=== PATIENT | male | born 1975 | race Caucasian/White ===

== ENCOUNTER 2024-05-09 17:49 | Emergency (ER) | payer OTHER, SELFPAY ==
--- NOTE | 2024-05-09 | ECG_ITS ---
Test Reason : CP Blood Pressure : / mmHG Vent. Rate : 075 BPM Atrial Rate : 075 BPM P-R Int : 116 ms QRS Dur : 108 ms QT Int : 384 ms P-R-T Axes : 035 019 036 degrees QTc Int : 428 ms Normal sinus rhythm Normal ECG No previous ECGs available Referred By: Generic ED Physician Electronically Signed By:SADAF VEGA MD
--- NOTE | ~2024-05-09 | XR_ITS ---
CLINICAL HISTORY: chest pain Two views of the chest. COMPARISON: None FINDINGS: Low lung volumes. Normal heart size. No consolidation. Crowding of the bronchovascular markings, likely secondary to low lung volumes. No pleural effusion pneumothorax. No acute fracture or suspicious bone lesion. IMPRESSION: 1. Low lung volumes. No consolidation. This document has been electronically signed by: Jose Cosme MD on 05/09/2024 19:11:56
[2024-05-09 18:19] VITALS: BP 139/119; PULSE 71; RESP 16; TEMP 36.6; O2SAT 96; BMI 40.6
--- NOTE | 2024-05-09 18:19 | ED.GENADULT ---
HPI - General Adult General Chief complaint: Chest Pain Stated complaint: Chest pain Related Data Allergies Allergy/AdvReac Type Severity Reaction Status Date / Time amoxicillin [AMOXICILLIN] Allergy Intermediate Hives Verified 05/09/24 18:21 tramadol [TRAMADOL] Allergy Intermediate Hives Verified 05/09/24 18:21 [facility] Social History Social History Advance Directives: No Advance Directives Information Provided: No Do you have a plan to hurt others: No Plan Physical Exam ED Vital Signs: BMI result Body Mass Index 40.6 Course Course Course Narrative: This is a rapid medical exam performed by Yuliana Quezada NP: Additional HPI, ROS, PE not included below will be deferred to primary provider. Patient is a 49-year-old male presenting to the emergency department with complaint of chest pain since 9am. [place] tight sensation and pain, had diaphoresis for 2 hours. Tried to rest but pain did not resolve. Plan: EKG, labs, CXR Medical Decision Making Lab Data 05/09/24 18:48 05/09/24 18:48 Labs: Lab Results 05/09/24 Range/Units 18:48 WBC 8.7 (4.8-10.8) X10*3/uL RBC 4.58 L (4.60-5.80) X10*6/uL Hgb 13.7 L (14.0-18.0) g/dl Hct 40.9 L (42.0-52.0) % MCV 89.3 (80.0-98.0) fL MCH 29.9 (27.0-33.0) pg MCHC 33.5 (31.0-36.0) g/dl RDW 13.0 (11.0-16.0) % Plt Count 189 (160-400) X10*3/uL MPV 9.6 (9.4-12.4) fL Immature Gran % (Auto) 0.3 (0.0-0.4) % Neut % (Auto) 69.1 (45-73) % Lymph % (Auto) 18.3 L (20-40) % [place] % (Auto) 7.0 (2-11) % Eos % (Auto) 4.5 H (0-4) % Baso % (Auto) 0.8 (0-2) % Lymph # (Auto) 1.6 (1.2-4.9) X10*3/uL [place] # (Auto) 0.6 (0.1-1.2) X10*3/uL Eos # (Auto) 0.4 (0.0-0.4) X10*3/uL Baso # (Auto) 0.1 (0.0-0.2) X10*3/uL Abs Immat Gran (auto) 0.03 (0.00-0.03) X10*3/uL Absolute Neuts (auto) 6.0 (2.0-8.3) x10*3/uL Absolute Nucleated RBC 0.000 (0.0-0.012) X10*3/uL Nucleated RBC % (auto) 0.0 (0.0-0.2) /100WBC Smear Tech's Comments VERIFIED PT 11.1 (10.9-12.4) SEC INR 1.0 (0.9-1.1) Sodium 139 (135-145) mmol/L Potassium 4.4 (3.3-5.1) mmol/L Chloride 105 (96-108) mmol/L Carbon Dioxide 26 (22-29) mmol/L Anion Gap 12 (12-20) BUN 17 H (9-16) mg/dL Creatinine 1.24 (0.5-1.4) mg/dL Estim Creat Clear Calc 88.3 Estimated GFR > 60 Random Glucose 81 (60-115) mg/dL Calcium 9.2 (8.4-10.2) mg/dL Total Bilirubin 0.2 (0.0-1.0) mg/dL AST 34 (5-37) U/L ALT 26 (0-40) U/L Alkaline Phosphatase 87 (39-117) U/L Troponin I High Sens < 2.7 (<3.5-35.0) ng/L Total Protein 7.7 (6.5-8.0) g/dL Albumin 4.1 (3.5-5.0) g/dL Discharge Plan Discharge Clinical Impression: Chest pain Patient Disposition: Left W/O Completing Treatment Discharge Date/Time: 05/09/24 21:00
[2024-05-09 19:09] LABS: Prothrombin Time 11.1 SEC (10.9-12.4)
[2024-05-09 19:14] LABS: Basophils Absolute Auto 0.1 X10*3/uL (0.0-0.2); Basophils Percent Auto 0.8 % (0-2); Eosinophils Absolute Auto 0.4 X10*3/uL (0.0-0.4); Eosinophils Percent Auto 4.5 % (0-4); Hematocrit 40.9 % (42.0-52.0); Hemoglobin 13.7 g/dl (14.0-18.0); Imm Gran Abs Auto 0.03 X10*3/uL (0.00-0.03); Imm Gran Pct Auto 0.3 % (0.0-0.4); Lymphocytes Absolute Auto 1.6 X10*3/uL (1.2-4.9); Lymphocytes Percent Auto 18.3 % (20-40); MANUAL DIFF FLAG SCAN; Mean Corpuscular HGB Conc 33.5 g/dl (31.0-36.0); Mean Corpuscular Hemoglobin 29.9 pg (27.0-33.0); Mean Corpuscular Volume 89.3 fL (80.0-98.0); Monocytes Absolute Auto 0.6 X10*3/uL (0.1-1.2); Neutrophils Percent Auto 69.1 % (45-73); PLT CLUMP 1; Red Blood Count 4.58 X10*6/uL (4.60-5.80); SCAN SMEAR FLAG 1
[2024-05-09 19:15] LABS: White Blood Count 8.7 X10*3/uL (4.8-10.8)
[2024-05-09 19:18] LABS: Mean Platelet Volume 9.6 fL (9.4-12.4); Platelet Count 189 X10*3/uL (160-400); SLIDE REVIEW VERIFIED
[2024-05-09 19:20] LABS: Alanine Aminotransferase 26 U/L (0-40); Albumin Level 4.1 g/dL (3.5-5.0); Alkaline Phosphatase 87 U/L (39-117); Anion Gap 12 (12-20); Aspartate Amino Transferase 34 U/L (5-37); Bilirubin Total 0.2 mg/dL (0.0-1.0); Blood Urea Nitrogen 17 mg/dL (9-16); Calcium 9.2 mg/dL (8.4-10.2); Carbon Dioxide 26 mmol/L (22-29); Chloride 105 mmol/L (96-108); Creatinine Clr Calc Pharmacy 88.3; Estimated Glomerular Filt Rate > 60; Glucose Random 81 mg/dL (60-115); Potassium 4.4 mmol/L (3.3-5.1); Sodium 139 mmol/L (135-145); Total Protein 7.7 g/dL (6.5-8.0)
[2024-05-09 19:28] LABS: Troponin-I High Sensitivity < 2.7 ng/L (<3.5-35.0)
== END 2024-05-09 21:00 | disposition left against medical advice (07) ==
PROVIDERS: Registered Nurse Emergency; Emergency Provider Emergency Medicine
DX: R07.89 Other chest pain (principal); Z79.899 Other long term (current) drug therapy
CPT/HCPCS: 36415; 71046; 80053; 84484; 85025; 85610; 93005; 99283

== ENCOUNTER → 2024-05-09 17:53 | Outpatient (BNV) | payer OTHER, SELFPAY | PROVIDERS: Emergency Provider Emergency Medicine; Visit Provider Internal Medicine Cardiovascular Disease | DX: R07.9 Chest pain, unspecified (principal) | CPT/HCPCS: 93010 ==

== ENCOUNTER → 2024-05-09 18:21 | Outpatient (BNV) | payer OTHER, SELFPAY | PROVIDERS: Visit Provider Radiology Diagnostic Radiology | DX: R07.9 Chest pain, unspecified (principal) | CPT/HCPCS: 71046 ==